=== PATIENT | female | born 1990 | race Caucasian/White ===

== ENCOUNTER 2017-03-06 17:38 | Emergency (ER) | payer MEDICAID ==
[~2017-03-06] VITALS: Ht 162.6 cm; Wt 71.2 kg
[2017-03-06 20:31] VITALS: BP 102/59
== END 2017-03-06 20:31 | disposition home or self-care (01) ==
LOC: ED 17:38
DX: R10.13 Epigastric pain (principal); R11.0 Nausea
CPT/HCPCS: Q0162